=== PATIENT | male | born 1945 | race Caucasian/White ===

== ENCOUNTER 2019-08-14 07:41 | Outpatient (CLI) | payer MEDICARE, SELFPAY ==
[2019-08-14 08:30] LABS: Hemoglobin A1C 6.1 % (<5.7)
== END 2019-08-14 07:42 | disposition home or self-care (01) ==
PROVIDERS: PCP Family Medicine; Visit Provider Family Medicine
DX: I10 Essential (primary) hypertension (principal); R73.09 Other abnormal glucose
CPT/HCPCS: 36415; 83036

== ENCOUNTER 2020-02-10 07:53 | Outpatient (CLI) | payer MEDICARE, SELFPAY ==
[2020-02-10 08:03] LABS: Hematocrit 50.6 % (37.0-46.0); Hemoglobin 16.7 g/dL (12.4-15.3); Mean Corpuscular Hemoglobin 31.9 pg (27.0-31.0); Mean Corpuscular Volume 96.6 fL (78.0-102.0); Mean Platelet Volume 9.4 fl (8.7-11.0); Platelet Count Result 247 K/mm3 (150-420); Red Blood Count 5.24 M/mm3 (4.70-6.10); Red Cell Distribution Width 11.8 % (11.6-14.4); White Blood Count 8.5 K/mm3 (4.8-10.8)
[2020-02-10 08:24] LABS: Hemoglobin A1C 5.7 % (<5.7)
[2020-02-10 08:55] LABS: Alanine Aminotransferase 31 U/L (16-63); Albumin Level 4.8 g/dL (3.4-5.0); Alkaline Phosphatase 78 U/L (46-116); Anion Gap 7 mmol/L (8-16); Aspartate Amino Transferase 21 U/L (15-37); Bilirubin,Total 0.6 mg/dL (0.00-1.00); Blood Urea Nitrogen 33 mg/dL (7-18); Calcium 9.6 mg/dL (8.5-10.1); Carbon Dioxide 30 mmol/L (21-32); Chloride 104 mmol/L (98-108); Estimated Glomerular Filt Rate 49; Glucose 119 mg/dL (70-99); Osmolality Calculated 300 mOsm/kg (285-295); Potassium 4.9 mmol/L (3.5-5.1); Sodium 141 mmol/L (136-145); Total Protein 7.3 g/dL (6.4-8.2)
== END 2020-02-10 07:54 | disposition home or self-care (01) ==
LOC: CHSLAB 07:54
PROVIDERS: PCP Family Medicine; Visit Provider Family Medicine
DX: R73.09 Other abnormal glucose (principal); I10 Essential (primary) hypertension
CPT/HCPCS: 36415; 80053; 83036; 85027

== ENCOUNTER 2021-01-31 10:10 | Outpatient (CLI) | payer MEDICARE, SELFPAY ==
--- NOTE | ~2021-01-31 | MR_ITS ---
EXAMINATION: MR brain/brain stem wo con DATE: 01/31/2021 10:52 INDICATION: Dizziness and giddiness. TECHNIQUE: Magnetic resonance imaging (MRI) of the brain and brainstem was performed without intraven ous contrast. Sequences included sagittal and axial T1-weighted FSE, axial diffusion-weighted FS EPI, axial T2*-weighted GRE, axial T2-weighted FLAIR Propeller, and axial T2-weighted Propeller. Apparent diffusion coefficient (ADC) maps were created. COMPARISON: None. FINDINGS: There are scattered areas of nonspecific increased T2-weighted signal intensity in the cere bral white matter. There is no intracranial hemorrhage, acute infarction, or abnormal intracranial ma ss lesion. The ventricles are normal in size. There is mild mucosal thickening in the ethmoid sinuses . The orbits are normal. There is a trace right mastoid effusion. IMPRESSION: 1. Mild nonspecific cerebral white matter disease, which likely represents chronic small vessel ische kirt disease. Reviewed, dictated and finalized at location B. ER HAND IMPRESSION: 1. 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
== END 2021-01-31 10:11 | disposition home or self-care (01) ==
LOC: CHSIMG 10:11
PROVIDERS: PCP Family Medicine; Visit Provider Family Medicine
DX: R42 Dizziness and giddiness (principal); R09.89 Other specified symptoms and signs involving the circulatory and respiratory systems
CPT/HCPCS: 70551

== ENCOUNTER 2021-02-06 14:52 | Outpatient (RCR) | payer MEDICARE, SELFPAY ==
--- NOTE | 2021-02-06 15:38 | PTOPEVAL ---
Thank you for referring Rodrigo Rankin to [facility].? The patient is scheduled to be seen for therapy? __1__x/week for 2 visits. Please review, sign, date and return this plan of care JN. I agree with and certify that the following plan of care is medically necessary. Referring Physician Date Admitting Provider: Attending Provider: Marc Dyson DO Referring Provider: *PT Outpatient Evaluation Start: 02/06/21 15:05 Freq: Status: Active Protocol: Document 02/06/21 15:05 SVETLANA (Rec: 02/06/21 15:32 [email or web address] [email or web address]) Therapy Assessment Status Assessment Status Assessment Status Evaluation Evaluation Information Problem Diagnosis dizziness, giddiness Onset 10/09/20 Subjective Information Pt. reports that he began Query Text:As Reported By Patient/ noticing some dizziness around Family the beginning of October. He states that he sat up in bed and had extreme dizziness. He reports that since that incident he has noticed frequent episodes of dizziness . He reports that bending forward and standing up will trigger the dizziness. He states that he also notes frequent dizziness when first waking in the morning. He describes the dizziness as if he is swaying back and forth but is not actually moving. He reports that he frequently reaches for things to hold while walking. He denies any falls. He reports that his goal is to decrease his dizziness. Diagnostic Tests MRI For This Problem Yes Prior Level of Function Activity Level (Last 3 Months) Occupation retired Hand Dominance Right Activity of Daily Living Ability Independent Indoor/Home Mobility Independent Community Mobility Independent Stairs Ability Independent Functional Cognition (Planning, Shopping Independent , Taking Medications) Cooking Yes Cleaning Yes Laundry Yes Shopping Yes Driving Yes Pain Assessment Self Report Self Report Pain Level 0 Pain Score Pain Score 0: S
== END 2021-02-15 13:57 | disposition home or self-care (01) ==
LOC: CHSPT 14:52
PROVIDERS: PCP Family Medicine; Visit Provider Family Medicine
DX: R42 Dizziness and giddiness (principal); R09.89 Other specified symptoms and signs involving the circulatory and respiratory systems
CPT/HCPCS: 97110; 97112; 97161

== ENCOUNTER 2021-02-07 08:18 | Outpatient (CLI) | payer MEDICARE, SELFPAY ==
[2021-02-07 08:27] LABS: Hematocrit 52.8 % (37.0-46.0); Hemoglobin 17.7 g/dL (12.4-15.3); Mean Corpuscular HGB Conc 33.5 g/dL (32.0-36.0); Mean Corpuscular Hemoglobin 32.2 pg (27.0-31.0); Mean Platelet Volume 9.6 fl (8.7-11.0); Platelet Count Result 239 K/mm3 (150-420); Red Cell Distribution Width 11.6 % (11.6-14.4); White Blood Count 7.3 K/mm3 (4.8-10.8)
[2021-02-07 08:49] LABS: Hemoglobin A1C 5.7 % (<5.7)
[2021-02-07 09:18] LABS: Alanine Aminotransferase 28 U/L (16-63); Albumin Level 4.2 g/dL (3.4-5.0); Alkaline Phosphatase 79 U/L (46-116); Anion Gap 8 mmol/L (8-16); Aspartate Amino Transferase 18 U/L (15-37); Bilirubin,Total 0.6 mg/dL (0.00-1.00); Blood Urea Nitrogen 22 mg/dL (7-18); Calcium 9.5 mg/dL (8.5-10.1); Carbon Dioxide 30 mmol/L (21-32); Chloride 105 mmol/L (98-108); Estimated Glomerular Filt Rate 44; Glucose 109 mg/dL (70-99); Osmolality Calculated 300 mOsm/kg (285-295); Potassium 4.8 mmol/L (3.5-5.1); Sodium 143 mmol/L (136-145)
== END 2021-02-07 08:19 | disposition home or self-care (01) ==
LOC: CHSLAB 08:20
PROVIDERS: PCP Family Medicine; Visit Provider Family Medicine
DX: E11.9 Type 2 diabetes mellitus without complications (principal); I10 Essential (primary) hypertension
CPT/HCPCS: 36415; 80053; 83036; 85027

== ENCOUNTER 2021-08-10 13:40 | Outpatient (CLI) | payer MEDICARE, SELFPAY ==
--- NOTE | ~2021-08-10 | US_ITS ---
EXAMINATION: US soft tissue UE RT DATE: 08/10/2021 14:06 INDICATION: Localized swelling, mass or lump at the medial right forearm TECHNIQUE: Multiple grayscale and Doppler ultrasound images of the region of concern at the medial ri ght forearm were obtained. COMPARISON: None FINDINGS: There is a 2.4 x 1.3 x 0.9 cm anechoic fluid collection with lobular margins and incomplete septation s at the region of concern at the medial right forearm. The lesion abuts the distal right radial nelda ry. Pulsatile arterial flow can be seen on color Doppler extending through the radial artery with johnny rly indiscernible wall the pulsatile flow from the anechoic fluid collection which is with out interval motion on color Doppler. IMPRESSION: 1. 2.4 x 1.3 x 0.9 cm anechoic fluid collection with lobular margins and no associated with the dista l right radial artery with nearly indiscernible intervening wall. Appearance suggests sequela of a di ssection of the radial artery and subsequent pseudoaneurysm formation. Reviewed, dictated and finalized at location B. IMPRESSION: 1. 2.4 x 1.3 x 0.9 cm anechoic fluid collection with lobular margins and no ass ociated with the distal right radial artery with nearly indiscernible interveni ng wall. Appearance suggests sequela of a dissection of the radial artery and s ubsequent pseudoaneurysm formation.
== END 2021-08-10 13:41 | disposition home or self-care (01) ==
LOC: CHSIMG 13:42
PROVIDERS: PCP Family Medicine; Visit Provider Family Medicine
DX: M62.89 Other specified disorders of muscle (principal)
CPT/HCPCS: 76882

== ENCOUNTER 2022-06-11 10:23 | Outpatient (CLI) | payer MEDICARE, SELFPAY ==
--- NOTE | ~2022-06-11 | US_ITS ---
EXAMINATION: US soft tissue UE RT DATE: 06/11/2022 11:03 INDICATION: Strain of muscle, fascia or tendon of the right biceps brachii. TECHNIQUE: Multiple grayscale and Doppler ultrasound images of the region of concern at the medial [facility] upper arm were obtained. COMPARISON: None FINDINGS: Partial muscle tear involving the deep portion of the muscle belly of what is presumably the biceps b rachii muscle at the medial aspect of the mid right upper arm. The torn portion of the muscle compris e approximately one third of the cross-sectional area is a small amount of anechoic fluid likely wong elsie at the tear defect and extending 4 similar proximal to distal along torn lax appearing torn musc le tissue. IMPRESSION: 1. Small intramuscular hematoma associated with a moderate grade strain/partial tear of the deep port ion of the biceps brachii muscle. Reviewed, dictated and finalized at location A. IMPRESSION: 1. Small intramuscular hematoma associated with a moderate grade strain/partial tear of the deep portion of the biceps brachii muscle.
== END 2022-06-11 10:24 | disposition home or self-care (01) ==
PROVIDERS: PCP Family Medicine; Visit Provider Nurse Practitioner Family
DX: S46.211A Strain of muscle, fascia and tendon of other parts of biceps, right arm, initial encounter (principal); S40.021A Contusion of right upper arm, initial encounter
CPT/HCPCS: 76882

== ENCOUNTER 2022-06-18 10:45 | Outpatient (RCR) | payer MEDICARE, SELFPAY ==
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
--- NOTE | 2022-07-19 14:26 | PTOPDC ---
Assessment and note entered by Casandra Jamison DPT Evaluation Information Assessment Status Evaluation Diagnosis R arm pain Onset 06/07/22 Subjective Information Patient reports his bicep has no pain. He reports he does have shoulder arthritis pain at times. He reports he has been able to return to yard work, cooking and cleaning without increase in pain. Reported Pain Level Pain Score 0: Self Report Assessment PT Clinical Summary Patient has been seen for 10 visits of skilled PT. He made great improvements in strength and ROM of the R shoulder. He has been able to return to all previous activities at this time with no increase in pain. He is independent with HEP and is appropriate for DC at this time. Plan of Care PT Services Indicated No
== END 2022-07-19 20:55 | disposition home or self-care (01) ==
LOC: CHSPT 10:45
PROVIDERS: PCP Nurse Practitioner Family; Visit Provider Nurse Practitioner Family
DX: S46.211D Strain of muscle, fascia and tendon of other parts of biceps, right arm, subsequent encounter (principal)
CPT/HCPCS: 97110; 97112; 97161